=== PATIENT | male | born 1975 | race Caucasian/White ===

== ENCOUNTER 2020-08-06 15:51 | Emergency (ER) | payer OTHER, SELFPAY ==
[2020-08-06 16:18] VITALS: BP 129/91; PULSE 83; RESP 20; TEMP 36.9; O2SAT 98
--- NOTE | 2020-08-06 16:44 | ED_ITS ---
HPI - Wound/Laceration General Chief Complaint: Wound/Laceration Stated Complaint: cut hand Related Data Allergies Allergy/AdvReac Type Severity Reaction Status Date / Time Penicillins Allergy Unknown Verified 10/24/19 09:06 [facility] Social History Social History Gender identity (if verbalized by the patient): Male Course Vital Signs Vital signs: Vital Signs Temperature 36.9 C 08/06/20 16:18 Pulse Rate 83 08/06/20 16:18 Respiratory Rate 20 08/06/20 16:18 Blood Pressure 129/91 H 08/06/20 16:18 Pulse Oximetry 98 08/06/20 16:18 Temperature 36.7 C 08/06/20 18:10 Pulse Rate 69 08/06/20 18:10 Respiratory Rate 20 08/06/20 18:10 Blood Pressure 142/90 H 08/06/20 18:10 Pulse Oximetry 99 08/06/20 18:10 Discharge Plan Discharge Clinical Impression: Laceration Patient Disposition: Home, Self-Care Condition: Stable Instructions: Antibiotic Form, Laceration (ED) Additional Instructions: Wound recheck in 3-5 days. Suture removal in 7 days antibiotics as prescribed. Keep the wound dry and clean Prescriptions: New sulfamethoxazole-trimethoprim [Bactrim DS] 800-160 mg tablet 1 tablet PO Q12H Qty: 14 RF: 0 Follow-up/Referrals: Krsiti,Sophia Rodrigues [employer] [Primary Care Provider] -
--- NOTE | 2020-08-06 16:45 | ED.WOUNDLAC ---
HPI - Wound/Laceration General Chief Complaint: Wound/Laceration Stated Complaint: cut hand History of Present Illness HPI narrative: 44-year-old male patient is here with a cut to the right hand at the base of the thumb after he accidentally hit it on a metal duct. The injury was sustained approximately less than an hour ago.Patient states that the bleeding has been controlled since then. He denies any numbness or tingling to the tip of the thumb. He denies any difficulty moving the thumb. He states that the thumb area feels a little stiff. There are no other injuries reported this time. Patient is unsure of his tetanus status thinks that he got it 5 years ago. He reports no other medical problems. Related Data Allergies Allergy/AdvReac Type Severity Reaction Status Date / Time Penicillins Allergy Unknown Verified 10/24/19 09:06 Review of Systems Review of Systems: All systems reviewed & are unremarkable except as noted in HPI and below PMFSH Social History Social History Gender identity (if verbalized by the patient): Male Exam Narrative: Exam Narrative: Patient is alert and the vital signs are stable. No acute distress is noted at this time. Left hand has a flap laceration that measures approximately 4 cm over the radial end of the thenar eminence. There is no active bleeding at this time. There is no hematoma. There is no deep tissue hanging out. There is no muscle tear. The thenar eminence is normal in size and minimally tender at the site of the wound. The range of motion at the wrist joint as well as at the MCP joint is intact. Distal thumb is atraumatic. HEENT is normal. Heart tones are normal. Breath sounds are clear bilaterally. Extremities are within normal limits otherwise. Neuropsych examination is normal. Skin is warm and dry. Course Course Emergency Course: Laceration has been repaired on the hand. Patient will be discharged home with a prescription for Augmentin for prophylactic therapy. Vital Signs Vital signs: Vital Signs Temperature 36.9 C 08/06/20 16:18 Pulse Rate 83 08/06/20 16:18 Respiratory Rate 20 08/06/20 16:18 Blood Pressure 129/91 H 08/06/20 16:18 Pulse Oximetry 98 08/06/20 16:18 Temperature 36.9 C 08/06/20 16:18 Pulse Rate 83 08/06/20 16:18 Respiratory Rate 20 08/06/20 16:18 Blood Pressure 129/91 H 08/06/20 16:18 Pulse Oximetry 98 08/06/20 16:18 Procedures Laceration Laceration 1: Date: 08/06/20 Time: 17:49 Site: hand Side (If applicable): left Size (cm): 5 ( flap laceration) Description: flap Depth: simple, single layer Amount of anesthesia used (mL): 2 Pre-repair: wound explored and irrigated ====== Skin Level ====== Skin layer closed with: nylon Size (cm): 4-0 Number of sutures: 4 Technique: simple, interrupted ====== Subcutaneous Layer ====== ====== Muscle Layer ====== ====== Tendon Layer ====== Discharge Plan Discharge Clinical Impression: Laceration Patient Disposition: Home, Self-Care Condition: Stable Instructions: Antibiotic Form, Laceration (ED) Additional Instructions: Wound recheck in 3-5 days. Suture removal in 7 days antibiotics as prescribed. Keep the wound dry and clean Prescriptions: New sulfamethoxazole-trimethoprim [Bactrim DS] 800-160 mg tablet 1 tablet PO Q12H Qty: 14 RF: 0 Follow-up/Referrals: Fidencio,Sophia Rodrigues, [employer] [Primary Care Provider] -
[2020-08-06 18:10] VITALS: BP 142/90; PULSE 69; RESP 20; TEMP 36.7; O2SAT 99
== END 2020-08-06 18:13 | disposition home or self-care (01) ==
PROVIDERS: Emergency Provider Emergency Medicine; PCP Nurse Practitioner
DX: S61.412A Laceration without foreign body of left hand, initial encounter (principal); W45.8XXA Other foreign body or object entering through skin, initial encounter
CPT/HCPCS: 12002; 99283